=== PATIENT | female | born 1995 | race Caucasian/White ===

== ENCOUNTER 2024-07-30 18:47 | Emergency (ER) | payer OTHER ==
[~2024-07-30] VITALS: Ht 167.6 cm; Wt 68.5 kg
[2024-07-30 18:55] VITALS: BP 112/69; PULSE 62; RESP 16; TEMP 98.1; O2SAT 98
[2024-07-30] MEDS ORDERED: ACET500T99 PO (20:07)
[2024-07-30] MEDS: ACETAMINOPHEN EXTRA STRENGTH 500 MG TAB PO ONE (20:15)
== END 2024-07-30 20:16 | disposition home or self-care (01) ==
LOC: MED 18:47
DX: S69.92XA Unspecified injury of left wrist, hand and finger(s), initial encounter (principal); Z79.899 Other long term (current) drug therapy; W24.0XXA Contact with lifting devices, not elsewhere classified, initial encounter; Y93.89 Activity, other specified; Y92.89 Other specified places as the place of occurrence of the external cause; Y99.8 Other external cause status
CPT/HCPCS: 73130; 99283